=== PATIENT | male | born 1975 | race Caucasian/White ===

== ENCOUNTER 2016-08-17 19:41 | Emergency (ER) | payer BC ==
[2016-08-17] MEDS ORDERED: Acetaminophen 325 MG Tab PO ONE (19:52)
[2016-08-17] MEDS ORDERED: Sodium Chloride 0.9% 1,000 ML IV ONE (20:03)
[2016-08-17] MEDS ORDERED: cefTRIAXone 1 GM in Sodium Chloride 0.9% 50 ML IV ONE (20:03)
--- NOTE | 2016-08-17 20:08 | EDM.PDOC ---
ED HPI GENERAL MEDICAL PROBLEM - General Chief Complaint: ENT Problem Stated Complaint: THROAT PAINS, HIGH FEVER, [id number] Time Seen by Provider: 08/17/16 19:45 Source of Information: Reports: Patient, Family History Limitations: Reports: No Limitations - History of Present Illness INITIAL COMMENTS - FREE TEXT/NARRATIVE: sore throat since Tuesday night, worse tonight, fever today, difficulty eating able to swallow some liquids. 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 [No Known Home Meds] 08/17/16 [History] Past Medical History Gastrointestinal History: Reports: Hepatitis - Infectious Disease History Infectious Disease History: Reports: Hepatitis B Social & Family History - Tobacco Use Smoking Status *Q: Never Smoker Second Hand Smoke Exposure: No - Recreational Drug Use Recreational Drug Use: No ED ROS ENT - Review of Systems Review Of Systems: See Below Constitutional: Reports: Fever HEENT: Reports: Throat Pain Respiratory: Reports: No Symptoms Cardiovascular: Reports: No Symptoms GI/Abdominal: Reports: No Symptoms Skin: Reports: No Symptoms Neurological: Reports: Headache ED EXAM, ENT - Physical Exam Exam: See Below Exam Limited By: No Limitations General Appearance: Alert, Moderate Distress Eye Exam: Bilateral Eye: PERRL Ears: Normal External Exam, TM Fluid (bilateral no redness) Nose: Normal Inspection Mouth/Throat: Muffled Voice, Tonsillar Erythema, Tonsillar Swelling, Other. No : Normal Oropharynx Head: Atraumatic Neck: Normal Inspection, Full Range of Motion, Lymphadenopathy (L), Lymphadenopathy (R). No: Limited Range of Motion Respiratory/Chest: No Respiratory Distress, Lungs Clear, Normal Breath Sounds Cardiovascular: Normal Peripheral Pulses, Regular Rate, Rhythm, Tachycardia GI/Abdominal: Normal Bowel Sounds, Soft Extremities: Normal Inspection Psychiatric: Normal Affect Skin: Warm, Dry, Intact, Other (face flushed). No: Rash Course - Vital Signs Last Recorded V/S: Last Vital Signs Temp 100.7 F H 08/17/16 21:12 Pulse 106 H 08/17/16 21:12 Resp 18 08/17/16 21:12 BP 98/45 L 08/17/16 21:12 Pulse Ox 95 08/17/16 21:12 - Orders/Labs/Meds Meds: Medications Discontinued Medications Generic Name Dose Route Start Last Admin Trade Name Panchito PRN Reason Stop Dose Admin Acetaminophen 650 mg 08/17/16 19:52 08/17/16 20:02 Tylenol PO 08/17/16 19:53 650 mg NOW ONE Administration Sodium Chloride 1,000 mls @ 999 mls/hr 08/17/16 20:03 08/17/16 20:13 Normal Saline IV 08/17/16 21:03 999 mls/hr .BOLUS ONE Administration Ceftriaxone Sodium 1 gm/ 50 mls @ 100 mls/hr 08/17/16 20:03 08/17/16 20:13 Sodium Chloride IV 08/17/16 20:32 100 mls/hr ONETIME ONE Administration Departure - Departure Time of Disposition: 21:26 Disposition: Home, Self-Care 01 Condition: Good Clinical Impression: Strep pharyngitis - Discharge Information Instructions: Strep Throat, [id number] Forms: ED Department Discharge Additional Instructions: increase fluids, chloraseptic throat spray for comfort, slat water gargles as needed amoxicillin 500mg one three times daily alternate tylenol 650mg and ibuprofen 600mg every 4 hours as needed for fever/ discomfort
[2016-08-17 21:13] VITALS: BP 98/45
== END 2016-08-17 21:38 | disposition home or self-care (01) ==
LOC: DL.ED 19:41
DX: J02.0 Streptococcal pharyngitis (principal)
CPT/HCPCS: 87430; 96361; 96365; 99282; A9270; J0696; J7030; J7050